=== PATIENT | male | born 1955 ===

== ENCOUNTER → 2025-11-02 13:04 | Outpatient (BNVA) | payer MEDICARE, MEDICAID, SELFPAY | PROVIDERS: Referring Provider Registered Nurse; Visit Provider Internal Medicine Cardiovascular Disease | DX: I48.0 Paroxysmal atrial fibrillation (principal); Z79.01 Long term (current) use of anticoagulants; I11.0 Hypertensive heart disease with heart failure; I50.22 Chronic systolic (congestive) heart failure; I48.92 Unspecified atrial flutter; Z98.61 Coronary angioplasty status; F17.200 Nicotine dependence, unspecified, uncomplicated; I73.9 Peripheral vascular disease, unspecified; R07.9 Chest pain, unspecified | CPT/HCPCS: 80053; 83735; 83880; 84443; 85025; 93005; 99204 ==

== ENCOUNTER 2025-11-08 13:02 | Outpatient (CLI) | payer MEDICARE, MEDICAID, SELFPAY ==
--- NOTE | 2025-11-08 14:15 | USR_ITS ---
PROCEDURE INFORMATION: Exam: US Duplex Bilateral Lower Extremity Arteries Exam date and time: 11/08/2025 1:44 PM Age: 69 years old Clinical indication: Condition or disease; Peripheral vascular disease; Additional info: Pad TECHNIQUE: Imaging protocol: Real-time ultrasound scan of the arteries of the bilateral lower extremities with 2-D cole scale, color Doppler flow and spectral waveform analysis. Images documented and saved. COMPARISON: No relevant prior studies available. FINDINGS: Right common femoral artery: No occlusion or significant stenosis. Monophasic waveform. Right superficial femoral artery: No occlusion or significant stenosis. Monophasic waveform. Right popliteal artery: No occlusion or significant stenosis. Monophasic waveform. Right calf/foot arteries: No occlusion or significant stenosis in the visualized arteries. Monophasic waveforms. Dorsalis pedis artery is patent. Left common femoral artery: No occlusion or significant stenosis. Monophasic waveform. Left superficial femoral artery: No occlusion or significant stenosis. Monophasic waveform. Left popliteal artery: No occlusion or significant stenosis. Monophasic waveform. Left calf/foot arteries: No occlusion or significant stenosis in the visualized arteries. Monophasic waveforms. Dorsalis pedis artery is patent. Other findings: Right MAURICIO: 0.63. Left MAURICIO: 0.76. US/CV arterial duplex [facility] [id number] IMPRESSION: No stenosis or occlusion in the lower extremity vessels. However there is a discrepancy between PSV measurements particularly in the left mid iliac and left common femoral arteries when compared to the right with a near 50% decrease on the left. This in combination with monophasic waveforms noted suggests inflow disease bilaterally but more on the left. Consider further evaluation with CTA, DSA, or MRA..
== END 2025-11-08 13:03 | disposition home or self-care (01) ==
LOC: RAD 13:04
PROVIDERS: Visit Provider Internal Medicine Cardiovascular Disease
DX: I73.9 Peripheral vascular disease, unspecified (principal)
CPT/HCPCS: 93925